=== PATIENT | female | born 1965 | race African-American/Black ===

== ENCOUNTER → 2021-10-21 | Emergency (ER) | payer OTHER ==
[~2021-10-21] VITALS: Ht 162.6 cm; Wt 80.0 kg
[2021-10-21 23:23] VITALS: BP 129/85
== END | disposition left against medical advice (07) ==
LOC: ER 22:55
DX: Z53.21 Procedure and treatment not carried out due to patient leaving prior to being seen by health care provider (principal)

== ENCOUNTER 2022-05-20 16:40 | Emergency (ER) | payer OTHER ==
[~2022-05-20] VITALS: Ht 162.6 cm; Wt 69.0 kg
[2022-05-20 16:45] VITALS: BP 155/95
[2022-05-20] MEDS ORDERED: IBUPROFEN 400MG TABLET PO ONE (18:30)
[2022-05-20] MEDS ORDERED: IBUP-2029 MT (19:05)
[2022-05-20] MEDS ORDERED: ALBU90AE INH (19:05)
[2022-05-20] MEDS ORDERED: LORA10CA MT (19:05)
== END 2022-05-20 19:24 | disposition home or self-care (01) ==
LOC: ER 16:49
DX: B34.9 Viral infection, unspecified (principal); J01.90 Acute sinusitis, unspecified; J45.909 Unspecified asthma, uncomplicated
CPT/HCPCS: 99283

== ENCOUNTER 2022-12-25 18:41 | Emergency (ER) | payer OTHER ==
[~2022-12-25] VITALS: Ht 162.6 cm; Wt 74.0 kg
[~2022-12-25 18:41] MED LIST: ALBU90AE INH; IBUP-2029 MT; IBUP-2030 MT; LORA10CA MT
[2022-12-25 19:07] VITALS: BP 122/83; PULSE 107; RESP 16; TEMP 98.6; O2SAT 100
[2022-12-25] MEDS ORDERED: KETOROLAC 30MG/ML VIAL IV ONE (19:45)
[2022-12-25] MEDS ORDERED: NAPR-681 MT (21:55)
== END 2022-12-25 22:07 | disposition home or self-care (01) ==
LOC: ER 18:41
DX: M25.561 Pain in right knee (principal)
CPT/HCPCS: 73562; 99283; Z7610

== ENCOUNTER 2023-01-30 02:27 | Emergency (ER) | payer OTHER ==
[~2023-01-30] VITALS: Ht 162.6 cm; Wt 79.1 kg
[~2023-01-30 02:27] MED LIST changes: +NAPR-681 MT
[2023-01-30 03:04] VITALS: O2SAT 98
[2023-01-30] MEDS ORDERED: KETOROLAC 60MG/2ML VIAL IM ONE (03:30)
[2023-01-30] MEDS ORDERED: LIDO700A15 TP (03:30)
[2023-01-30] MEDS ORDERED: LIDOCAINE 5% PATCH TOP ONE (03:30)
[2023-01-30] MEDS ORDERED: DEXAMETHASONE 10 MG/ML VIAL IM ONE (03:30)
[2023-01-30] MEDS ORDERED: ACETAMINOPHEN 325MG TABLET PO ONE (03:30)
[2023-01-30] MEDS ORDERED: NAPR-1074 MT (03:30)
[2023-01-30] MEDS ORDERED: BACL-141 MT (03:30)
[2023-01-30 04:00] VITALS: BP 167/103; PULSE 84; RESP 16; TEMP 98.5
== END 2023-01-30 04:00 | disposition home or self-care (01) ==
LOC: ER 02:27
DX: M62.830 Muscle spasm of back (principal); I10 Essential (primary) hypertension; Z00.00 Encounter for general adult medical examination without abnormal findings
CPT/HCPCS: 81025; 96372; 99284; J1100; J1885; Z7610

== ENCOUNTER 2023-07-19 18:44 | Emergency (ER) | payer SELFPAY ==
[~2023-07-19] VITALS: Ht 162.6 cm; Wt 70.0 kg
[~2023-07-19 18:44] MED LIST changes: +BACL-141 MT; +LIDO700A15 TP; +NAPR-1074 MT
[2023-07-19 18:59] VITALS: O2SAT 99
[2023-07-19 19:03] VITALS: TEMP 98.2
[2023-07-19] MEDS ORDERED: KETOROLAC 15MG/ML VIAL IM ONE (19:30)
[2023-07-19 21:12] VITALS: BP 122/89; PULSE 94; RESP 18
[2023-07-19] MEDS: KETOROLAC 15MG/ML VIAL IM NR (21:12)
[2023-07-19] MEDS ORDERED: NAPR-1176 MT (21:17)
[2023-07-19] MEDS ORDERED: LIDO700A15 TP (21:17)
== END 2023-07-19 21:29 | disposition home or self-care (01) ==
LOC: ER 18:44
DX: M54.31 Sciatica, right side (principal); J45.909 Unspecified asthma, uncomplicated; Z79.899 Other long term (current) drug therapy
CPT/HCPCS: 96372; 99283; J1885; Z7610

== ENCOUNTER 2024-07-22 14:31 | Emergency (ER) | payer SELFPAY ==
[~2024-07-22] VITALS: Ht 152.4 cm; Wt 70.0 kg
[~2024-07-22 14:31] MED LIST changes: +NAPR-1176 MT
[2024-07-22 14:44] VITALS: O2SAT 99
[2024-07-22] MEDS ORDERED: [UNRECOGNIZED DRUG - CODE] MT (18:10)
[2024-07-22] MEDS ORDERED: PENICILLIN G BENZATHINE 1,200,000 UNITS/2ML SYR IM ONE (19:00)
[2024-07-22] MEDS: PEN G BENZ/PEN G PROCAINE CR 1.2 MMU/2 ML IM ONE (19:11)
[2024-07-22 19:21] VITALS: BP 162/102; PULSE 92; RESP 14; TEMP 36.8; O2SAT 99
[2024-07-22] MEDS: PENICILLIN G BENZATHINE 1,200,000 UNITS/2ML SYR IM NR (19:21)
== END 2024-07-22 19:23 | disposition home or self-care (01) ==
LOC: ER 14:31
DX: J02.9 Acute pharyngitis, unspecified (principal); F10.90 Alcohol use, unspecified, uncomplicated; J45.909 Unspecified asthma, uncomplicated; Z79.1 Long term (current) use of non-steroidal anti-inflammatories (NSAID)
CPT/HCPCS: 96372; 99283; J0561; Z7610; J0558

== ENCOUNTER 2024-11-19 15:44 | Emergency (ER) | payer SELFPAY ==
[~2024-11-19] VITALS: Ht 167.6 cm; Wt 91.0 kg
[~2024-11-19 15:44] MED LIST changes: +LIDO-53 TP; -LIDO700A15 TP; +[UNRECOGNIZED DRUG - CODE] MT
[2024-11-19 16:36] VITALS: TEMP 36.9; O2SAT 100
[2024-11-19] MEDS ORDERED: ACET-2708 MT (17:06)
[2024-11-19] MEDS: ACETAMINOPHEN 500MG TABLET PO ONE (18:20)
[2024-11-19 18:21] VITALS: BP 160/98; PULSE 74; RESP 14; O2SAT 100
== END 2024-11-19 18:21 | disposition home or self-care (01) ==
LOC: ER 15:44
DX: M79.641 Pain in right hand (principal); J45.909 Unspecified asthma, uncomplicated; Z79.899 Other long term (current) drug therapy
CPT/HCPCS: 99283; 73120; A6449